=== PATIENT | male | born 1935 | race Caucasian/White ===

== ENCOUNTER 2018-11-06 15:56 | Emergency (ER) | payer OTHER, MEDICARE ==
[2018-11-06 16:06] VITALS: BP 161/68
[2018-11-06] MEDS ORDERED: Sodium Chloride 0.9% 1,000 ML IV ONE ×2 (16:25→21:00)
--- NOTE | 2018-11-06 16:35 | EDM.PDOC ---
ED HPI GENERAL MEDICAL PROBLEM - General Chief Complaint: Fever Stated Complaint: [facility] Time Seen by Provider: 11/06/18 16:17 Source of Information: Reports: Patient, Family History Limitations: Reports: Altered Mental Status - History of Present Illness INITIAL COMMENTS - FREE TEXT/NARRATIVE: 83-year-old male with history of MS and UTI presents to the ED via EMS with concerns of altered mental status and fever. states patient has a history of kidney stone that required lithotripsy and stent placement. Patient had 1 stone remaining that required further treatment. Patient was scheduled for cystoscopy but had to be canceled due to UTI. Patient was discharged from the hospital 10/30/2018. Up until today patient has been doing quite well. He has been taking Cipro as prescribed. There has been no recent trauma associated with his altered mental status. states the patient has been almost falling out of his wheelchair with this confusion thus prompting evaluation. There has been no fall. - Related Data Allergies Allergy/AdvReac Type Severity Reaction Status Date / Time amoxicillin trihydrate AdvReac Indigestion Verified 11/06/18 16:06 [From Augmentin] potassium clavulanate AdvReac Indigestion Verified 11/06/18 16:06 [From Augmentin] Home Meds: Home Meds Baclofen 1 tab PO DAILY 09/11/13 [History] Furosemide [Lasix] 1 tab PO DAILY 09/11/13 [History] Gabapentin [Neurontin] 2 cap PO Q6HR 09/11/13 [History] LORazepam [Ativan] 0.5 mg PO 09,12,16 09/11/13 [History] Potassium Chloride 1 tab PO DAILY 09/11/13 [History] glyBURIDE [Glyburide] 10 tab PO BID 09/11/13 [History] Bisacodyl [Dulcolax] 10 mg RECTAL DAILY PRN 12/07/14 [History] Aspirin [Halfprin] 81 mg PO DAILY 09/25/18 [History] Bisacodyl [Dulcolax] 1 tab RECTAL TUFR 09/25/18 [History] Docusate Sodium [Colace] 100 mg PO DAILY 09/25/18 [History] LORazepam [Ativan] 0.5 mg PO DAILY PRN 09/25/18 [History] Levothyroxine Sodium [Synthroid] 75 mcg PO DAILY 09/25/18 [History] Rosuvastatin Calcium 10 mg PO BEDTIME 09/25/18 [History] Sertraline HCl 50 mg PO DAILY 09/25/18 [History] Vit D3/Folic Acid/B2/B6/B12 [Folgard Tablet] 1,000 units PO DAILY 09/25/18 [ History] carBAMazepine [TEGretol] 100 mg PO BID 09/25/18 [History] Ciprofloxacin [Ciprofloxacin HCl] 500 mg PO BID #14 tab 10/31/18 [Rx] Nystatin 30 gm TP BID #1 cream..g. 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 Genitourinary History: Reports: Retention, Urinary Other Genitourinary History: chronic intermittent cath at home Musculoskeletal History: Reports: Other (See Below) Other Musculoskeletal History: chronic muscle weakness, left side worse weakness than right- uses abram lift at home, able to assist with bed mobility with upper body- Neurological History: Reports: MS, Seizure Other Neuro History: facial twitching which nuerologist believes to be mini seizures Psychiatric History: Reports: Anxiety, Depression Other Psychiatric History: on ativan Endocrine/Metabolic History: Reports: Diabetes, Type II Other Endocrine/Metabolic History: states he is borderline and on po med Other Oncologic History: not assessed with - Infectious Disease History Other Infectious Disease History: denies MRSA and VRE - Past Surgical History Dermatological Surgical History: Reports: Skin Graft Social & Family History - Family History Family Medical History: Noncontributory - Caffeine Use Caffeine Use: Reports: None ED ROS GENERAL - Review of Systems Review Of Systems: Unable To Obtain - Physical Exam Exam: See Below Exam Limited By: Other (Dry mouth difficulty to understand speech. Confused.) General Appearance: Alert, Lethargic Eye Exam: Bilateral Eye: Normal Inspection, PERRL Ears: Hearing Grossly Normal Nose: Normal Inspection Throat/Mouth: No Airway Compromise, Other (Dry oromucosa with slurred speech present.) Head Exam: Atraumatic, Normocephalic Neck: Normal Inspection, Supple, Non-Tender, Full Range of Motion. No: Lymphadenopathy (L), Lymphadenopathy (R) Respiratory/Chest: No Respiratory Distress, Lungs Clear, Normal Breath Sounds, No Accessory Muscle Use, Chest Non-Tender Cardiovascular: Normal Peripheral Pulses, Regular Rate, Rhythm, No Murmur GI/Abdominal: Normal Bowel Sounds, Soft, Non-Tender, No Organomegaly, No Distention Neuro Exam (Abbreviated): Alert, Other (Patient's able to lift his arms in front of him hold him upright while closing his eyes with no pronator drift. No obvious weakness discrepancy is to the upper extremity. He does not follow commands.). No: Normal Cognition (Confused) Back Exam: Normal Inspection Extremities: Normal Inspection, Non-Tender, Pedal Edema (Trace bilaterally) Skin Exam: Warm, Dry, Intact, Normal Color, No Rash Course - Vital Signs Last Recorded V/S: Last Vital Signs Temp 98.9 F 11/06/18 16:00 Pulse 112 H 11/06/18 16:00 Resp 28 H 11/06/18 16:00 BP 161/68 H 11/06/18 16:00 Pulse Ox 91 L 11/06/18 16:00 - Orders/Labs/Meds Orders: Active Orders 24 hr Category Date Time Status Glucose [Blood Glucose Check, Bedside] [RC] ONETIME Care 11/06/18 20:00 Active Chest 1V Frontal [CR] Stat Exams 11/06/18 16:25 Taken CULTURE BLOOD [BC] Stat Lab 11/06/18 17:07 Received CULTURE BLOOD [BC] Stat Lab 11/06/18 17:55 Received CULTURE URINE [RM] Stat Lab 11/06/18 18:40 Received PROCALCITONIN [REF] Stat Lab 11/06/18 17:07 Received STREP PNEUMONIAE ANTIGEN [MREF] Stat Lab 11/06/18 18:40 Received Blood Culture x2 Reflex Set [OM.PC] Stat Oth 11/06/18 16:25 Ordered Labs: Laboratory Tests 11/06/18 11/06/18 11/06/18 Range/Units 17:07 17:07 17:07 WBC 21.23 H (4.23-9.07) K/mm3 RBC 4.67 (4.63-6.08) M/mm3 Hgb 14.0 (13.7-17.5) gm/L Hct 41.8 (40.1-51.0) % MCV 89.5 (79.0-92.2) fl MCH 30.0 (25.7-32.2) pg MCHC 33.5 (32.2-35.5) g/dl RDW Std Deviation 43.0 (35.1-43.9) fL Plt Count 329 (163-337) K/mm3 MPV 11.4 (9.4-12.3) fl Neutrophils % (Manual) 82 H (40-60) % Band Neutrophils % 0 (0-10) % Lymphocytes % (Manual) 14 L (20-40) % Atypical Lymphs % 0 % Monocytes % (Manual) 3 (2-10) % Eosinophils % (Manual) 1 (0.8-7.0) % Basophils % (Manual) 0 L (0.2-1.2) Platelet Estimate Adequate Plt Morphology Comment Normal RBC Morph Comment Normal Puncture Site ABG pH (7.35-7.45) ABG pCO2 (35.0-45.0) mmHg ABG pO2 (80.0-100.0) mmHg ABG HCO3 (22.0-26.0) meq/L ABG O2 Saturation (96.0-97.0) % ABG Base Excess (-2-2.0) Abdelrahman Test O2 Delivery Device FiO2 (21.00-100.00) % Sodium 134 L (136-145) mEq/L Potassium 2.8 L (3.5-5.1) mEq/L Chloride 91 L D (98-107) mEq/L Carbon Dioxide 30 (21-32) mEq/L Anion Gap 15.8 H (5-15) BUN 22 H (7-18) mg/dL Creatinine 1.1 (0.7-1.3) mg/dL Est Cr Clr Drug Dosing TNP Estimated GFR (MDRD) > 60 (>60) mL/min BUN/Creatinine Ratio 20.0 H (14-18) Glucose 542 H (83-115) mg/dL Serum Osmolality (280-300) mosm/kg Lactic Acid 1.6 (0.4-2.0) mmol/L Calcium 9.5 (8.5-10.1) mg/dL Total Bilirubin 0.6 (0.2-1.0) mg/dL AST 20 (15-37) U/L ALT 37 (16-63) U/L Alkaline Phosphatase 116 (46-116) U/L C-Reactive Protein 36.3 H* (<1.0) mg/dL Total Protein 8.6 H (6.4-8.2) g/dl Albumin 3.0 L (3.4-5.0) g/dl Globulin 5.6 gm/dL Albumin/Globulin Ratio 0.5 L (1-2) Urine Color (Yellow) Urine Appearance (Clear) Urine pH (5.0-8.0) Ur Specific [place] (1.005-1.030) Urine Protein (Negative) Urine Glucose (UA) (Negative) Urine Ketones (Negative) Urine Occult Blood (Negative) Urine Nitrite (Negative) Urine Bilirubin (Negative) Urine Urobilinogen (0.2-1.0) Ur Leukocyte Esterase (Negative) Urine RBC (0-5) /hpf Urine WBC (0-5) /hpf Urine WBC Clumps (NOT SEEN) /hpf Ur Epithelial Cells (0-5) /hpf Urine Bacteria (FEW) /hpf Urine Mucus (FEW) /hpf Urine Yeast (NOT SEEN) Ketones (0.0-0.3) mM Mycoplasma pneumon IgM Negative (NEGATIVE) 11/06/18 11/06/18 11/06/18 Range/Units 17:07 17:07 18:40 WBC (4.23-9.07) K/mm3 RBC (4.63-6.08) M/mm3 Hgb (13.7-17.5) gm/L Hct (40.1-51.0) % MCV (79.0-92.2) fl MCH (25.7-32.2) pg MCHC (32.2-35.5) g/dl RDW Std Deviation (35.1-43.9) fL Plt Count (163-337) K/mm3 MPV (9.4-12.3) fl Neutrophils % (Manual) (40-60) % Band Neutrophils % (0-10) % Lymphocytes % (Manual) (20-40) % Atypical Lymphs % % Monocytes % (Manual) (2-10) % Eosinophils % (Manual) (0.8-7.0) % Basophils % (Manual) (0.2-1.2) Platelet Estimate Plt Morphology Comment RBC Morph Comment Puncture Site ABG pH (7.35-7.45) ABG pCO2 (35.0-45.0) mmHg ABG pO2 (80.0-100.0) mmHg ABG HCO3 (22.0-26.0) meq/L ABG O2 Saturation (96.0-97.0) % ABG Base Excess (-2-2.0) Abdelrahman Test O2 Delivery Device FiO2 (21.00-100.00) % Sodium (136-145) mEq/L Potassium (3.5-5.1) mEq/L Chloride (98-107) mEq/L Carbon Dioxide (21-32) mEq/L Anion Gap (5-15) BUN (7-18) mg/dL Creatinine (0.7-1.3) mg/dL Est Cr Clr Drug Dosing Estimated GFR (MDRD) (>60) mL/min BUN/Creatinine Ratio (14-18) Glucose (83-115) mg/dL Serum Osmolality 315 H (280-300) mosm/kg Lactic Acid (0.4-2.0) mmol/L Calcium (8.5-10.1) mg/dL Total Bilirubin (0.2-1.0) mg/dL AST (15-37) U/L ALT (16-63) U/L Alkaline Phosphatase (46-116) U/L C-Reactive Protein (<1.0) mg/dL Total Protein (6.4-8.2) g/dl Albumin (3.4-5.0) g/dl Globulin gm/dL Albumin/Globulin Ratio (1-2) Urine Color Yellow (Yellow) Urine Appearance Cloudy H (Clear) Urine pH 6.5 (5.0-8.0) Ur Specific [place] 1.015 (1.005-1.030) Urine Protein 1+ H (Negative) Urine Glucose (UA) 2+ H (Negative) Urine Ketones Negative (Negative) Urine Occult Blood 2+ H (Negative) Urine Nitrite Negative (Negative) Urine Bilirubin Negative (Negative) Urine Urobilinogen 0.2 (0.2-1.0) Ur Leukocyte Esterase 1+ H (Negative) Urine RBC 10-20 H (0-5) /hpf Urine WBC 75-100 H (0-5) /hpf Urine WBC Clumps Few (NOT SEEN) /hpf Ur Epithelial Cells 0-5 (0-5) /hpf Urine Bacteria Moderate H (FEW) /hpf Urine Mucus Not seen (FEW) /hpf Urine Yeast Moderate H (NOT SEEN) Ketones 0.58 (0.0-0.3) mM Mycoplasma pneumon IgM (NEGATIVE) 11/06/18 Range/Units 20:20 WBC (4.23-9.07) K/mm3 RBC (4.63-6.08) M/mm3 Hgb (13.7-17.5) gm/L Hct (40.1-51.0) % MCV (79.0-92.2) fl MCH (25.7-32.2) pg MCHC (32.2-35.5) g/dl RDW Std Deviation (35.1-43.9) fL Plt Count (163-337) K/mm3 MPV (9.4-12.3) fl Neutrophils % (Manual) (40-60) % Band Neutrophils % (0-10) % Lymphocytes % (Manual) (20-40) % Atypical Lymphs % % Monocytes % (Manual) (2-10) % Eosinophils % (Manual) (0.8-7.0) % Basophils % (Manual) (0.2-1.2) Platelet Estimate Plt Morphology Comment RBC Morph Comment Puncture Site Lt radial ABG pH 7.44 (7.35-7.45) ABG pCO2 40.9 (35.0-45.0) mmHg ABG pO2 55.0 L (80.0-100.0) mmHg ABG HCO3 27.5 H (22.0-26.0) meq/L ABG O2 Saturation 88.4 L (96.0-97.0) % ABG Base Excess 3.6 H (-2-2.0) Abdelrahman Test Positive O2 Delivery Device Room air FiO2 0.00 L (21.00-100.00) % Sodium (136-145) mEq/L Potassium (3.5-5.1) mEq/L Chloride (98-107) mEq/L Carbon Dioxide (21-32) mEq/L Anion Gap (5-15) BUN (7-18) mg/dL Creatinine (0.7-1.3) mg/dL Est Cr Clr Drug Dosing Estimated GFR (MDRD) (>60) mL/min BUN/Creatinine Ratio (14-18) Glucose (83-115) mg/dL Serum Osmolality (280-300) mosm/kg Lactic Acid (0.4-2.0) mmol/L Calcium (8.5-10.1) mg/dL Total Bilirubin (0.2-1.0) mg/dL AST (15-37) U/L ALT (16-63) U/L Alkaline Phosphatase (46-116) U/L C-Reactive Protein (<1.0) mg/dL Total Protein (6.4-8.2) g/dl Albumin (3.4-5.0) g/dl Globulin gm/dL Albumin/Globulin Ratio (1-2) Urine Color (Yellow) Urine Appearance (Clear) Urine pH (5.0-8.0) Ur Specific [place] (1.005-1.030) Urine Protein (Negative) Urine Glucose (UA) (Negative) Urine Ketones (Negative) Urine Occult Blood (Negative) Urine Nitrite (Negative) Urine Bilirubin (Negative) Urine Urobilinogen (0.2-1.0) Ur Leukocyte Esterase (Negative) Urine RBC (0-5) /hpf Urine WBC (0-5) /hpf Urine WBC Clumps (NOT SEEN) /hpf Ur Epithelial Cells (0-5) /hpf Urine Bacteria (FEW) /hpf Urine Mucus (FEW) /hpf Urine Yeast (NOT SEEN) Ketones (0.0-0.3) mM Mycoplasma pneumon IgM (NEGATIVE) Meds: Medications Discontinued Medications Generic Name Dose Route Start Last Admin Trade Name Freq PRN Reason Stop Dose Admin Sodium Chloride 1,000 mls @ 999 mls/hr 11/06/18 16:25 11/06/18 17:06 Normal Saline IV 11/06/18 17:25 999 mls/hr ONETIME ONE Administration Levofloxacin/Dextrose 750 mg/ 150 mls @ 100 mls/hr 11/06/18 18:08 11/06/18 18 :28 Premix IV 11/06/18 19:37 100 mls/hr ONETIME ONE Administration Potassium Chloride 10 meq/ 100 mls @ 100 mls/hr 11/06/18 18:35 11/06/18 19:57 Premix IV 11/06/18 19:34 100 mls/hr ASDIRECTED ONE Administration Potassium Chloride 10 meq/ 100 mls @ 100 mls/hr 11/06/18 18:34 11/06/18 20:53 Premix IV 08/22/19 19:33 100 mls/hr ASDIRECTED ONE Administration Potassium Chloride 10 meq/ 100 mls @ 100 mls/hr 11/06/18 18:34 Premix IV 11/06/18 19:33 ONETIME ONE Sodium Chloride 1,000 mls @ 250 mls/hr 11/06/18 18:35 11/06/18 21:01 Normal Saline IV 11/06/18 22:34 999 mls/hr ONETIME ONE Administration Sodium Chloride Confirm 11/06/18 20:57 11/06/18 21:03 Normal Saline Administered 11/06/18 20:58 Not Given Dose 1,000 mls @ as directed .ROUTE .STK-MED ONE Sodium Chloride 1,000 mls @ 999 mls/hr 11/06/18 21:00 11/06/18 21:03 Normal Saline IV 11/06/18 22:00 999 mls/hr ONETIME ONE Administration Potassium Chloride 40 meq 11/06/18 18:41 11/06/18 19:18 Potassium Chloride Solution PO 11/06/18 18:42 40 meq ONETIME ONE Administration - Re-Assessments/Exams Free Text/Narrative Re-Assessment/Exam: On exam patient's vital signs are 161/68, heart rate 110, temperature 98.9F, RR 28 with O2 sats 91% on room air. Patient is slightly confused with a dry mouth. He offers no complaints at this time. who is present states the patient has a history of MS with recent urinary tract infection and kidney stones that required lithotripsy and stent placement. Patient had 2 kidney stones with one remaining. Patient was just recently discharged from the hospital this past . He was admitted to [facility] and underwent lithotripsy and stent placement able to break the 1 kidney stone that was blocking the ureter. Patient has one other stone remaining in the kidney of unknown side that requires further treatment. Patient has been taking the Cipro as prescribed for unresolved UTI. As of this morning developed some confusion with subjective fever. Patient has been slightly short of breath per with no cough present. Patient has been weak and almost falling out of his chair. Patient has not fallen out of the chair or suffered any form of trauma. EMS was notified and transported the patient to the ED with a temperature of 102F. Upon admission to the ED patient has no fever. IV will be established with normal saline 1 L IV bolus. Initial labs and studies will include: CBC, chem 14, CRP, blood culture 2, but the gas a, UA via quick in and out catheter, and also will obtain mycoplasma, calcitonin, and strep pneumonia with recent hospitalization. 11/06/18 17:24 CXR revealed no acute findings. Reviewed with Dr. Guzman. Final interpretation is pending. CT of the head impression: Sinus findings which are fairly stable from previous exam. As mentioned previously, please correlate the patient has no symptoms of sinusitis. Senescent change as noted above which is fairly stable from prior head CT exam. No acute intracranial abnormality is appreciated. Labs reviewed: White blood cell count 21.23, hemoglobin 14.0, platelet count 329 , differential is pending. Sodium 134, potassium 2.8, chloride 91, CO2 30, AG 15.8, BUN 22, crit 1.1, glucose 542, CRP pending. Discussed patient with Dr. Guzman suggested IV levaquin since patient had a adverse reaction with taking keflex last E.D. visit. Per MD calc patient is in non anion gap acidosis. CRP Pending and differential pending. Mycoplasma is pending. Reassessment, patient states he is feeling much better. Speech is almost back to baseline per . Patients HR trending down with BP maintaining. Ordered potassium 10 mEq IV x 3. Additional 1 liter of NS 250mls/hr ordered. I do not want to fluid overload the patient. I have ordered liquid potassium 40 mEq by mouth. Per patient has been able to swallow with no issues. CRP 36.3, serum osmolality 315, and lactic acid 1.6. UA positive for protein, glucose, occult blood, leukocyte esterase, rbc's 10-20 , WBC 75-100, bacteria moderate, and yeast moderate. Ketones 0.58 which is elevated. Mycoplasma negative. CRP 36.3, serum osmolality 315, and lactic acid 1.6. UA positive for protein, glucose, occult blood, leukocyte esterase, rbc's 10-20 , WBC 75-100, bacteria moderate, and yeast moderate. Ketones 0.58 which is elevated. Mycoplasma negative. 2012 POC BS >400. IVF's changed to 999mls/hr. although patient does have a history of type 2 diabetes he is in DKA with elevated ketones and serum osmolality. Cannot start patient on any insulin at this point with hypokalemia. This has to be corrected prior. Patient meets sepsis criteria. Per patient weighs 83kgs. [address]Bhandari Srinivasan Manrique. He has agreed to accept the patient. Transfer paperwork has been completed. EMS has been notified. Requested abg. This has been ordered. 11/06/18 21:01 ABG pH 7.44, PCO2 40.9, PO2 55, HCO3 27.5, O2 sats 88.4, ABG base excess 3.6. Per MD Calc: Primary Metabolic Alkalosis with appropriately compensated by Respiratory Acidosis. Unable to determine cause of low PO2. He is tachycardic with mildly low O2 sats of 91%. Discussed ABG with . Suspects cause of low O2 secondary to his inability to take adequate inspiration due to MS. He may have a PE but unlikely. Results to be faxed to Srinivasan Manrique. Departure - Departure Time of Disposition: 20:25 Disposition: DC/Tfer to [facility] 02 Condition: Fair Clinical Impression: Complicated UTI (urinary tract infection), DKA, type 2, not at goal, Hypokalemia Sepsis Qualifiers: Sepsis type: sepsis due to unspecified organism Sepsis acute organ dysfunction status: without acute organ dysfunction Qualified Code(s): A41.9 - Sepsis, unspecified organism - Discharge Information Referrals: PCP,Unknown [Ordering Only Provider] - Forms: ED Department Discharge - My Orders Last 24 Hours: My Active Orders 11/06/18 16:25 Chest 1V Frontal [CR] Stat Blood Culture x2 Reflex Set [OM.PC] Stat 11/06/18 17:07 CULTURE BLOOD [BC] Stat PROCALCITONIN [REF] Stat 11/06/18 17:55 CULTURE BLOOD [BC] Stat 11/06/18 18:40 CULTURE URINE [RM] Stat STREP PNEUMONIAE ANTIGEN [MREF] Stat 11/06/18 20:00 Glucose [Blood Glucose Check, Bedside] [RC] ONETIME - Assessment/Plan Last 24 Hours: My Active Orders 11/06/18 16:25 Chest 1V Frontal [CR] Stat Blood Culture x2 Reflex Set [OM.PC] Stat 11/06/18 17:07 CULTURE BLOOD [BC] Stat PROCALCITONIN [REF] Stat 11/06/18 17:55 CULTURE BLOOD [BC] Stat 11/06/18 18:40 CULTURE URINE [RM] Stat STREP PNEUMONIAE ANTIGEN [MREF] Stat 11/06/18 20:00 Glucose [Blood Glucose Check, Bedside] [RC] ONETIME
--- NOTE | 2018-11-06 17:19 | CT ---
Head CT Technique: Multiple axial sections through the brain were obtained. Intravenous contrast was not utilized. Comparison: Prior head CT study of 10/31/18. Findings: Ventricles along with basal cisterns and sulci over the convexities are moderately prominent. Mild areas of diminished density is noted within portions of the periventricular white matter compatible with small vessel ischemic demyelination change. No other abnormal parenchymal densities are seen. No evidence of intracranial hemorrhage. No midline shift or mass effect is seen. Bone window settings were reviewed which shows mucosal thickening within the right maxillary sinus as well as within the ethmoid sinuses. No acute calvarial abnormality is appreciated. Impression: 1. Sinus findings which are fairly stable from previous exam. As mentioned previously, please correlate that patient has no symptoms of sinusitis. 2. Senescent change as noted above which is fairly stable from prior head CT exam. 3. No acute intracranial abnormality is appreciated. Diagnostic code #2
[2018-11-06] MEDS ORDERED: Levofloxacin/Dextrose 5%-Water 750 MG in Premix Bag 1 BAG IV ONE (18:08)
[2018-11-06] MEDS ORDERED: Potassium Chloride 10 MEQ in Premix Bag 1 BAG IV ONE ×5 (18:34→18:35)
[2018-11-06] MEDS ORDERED: Potassium Chloride 10% 20 MEQ/15 ML Soln 15 ML UD Cup PO ONE (18:41)
[2018-11-06] MEDS: Sodium Chloride 0.9% 1,000 ML IV ONE ×2 (19:17→21:01)
[2018-11-06] MEDS ORDERED: Sodium Chloride 0.9% 1,000 ML ONE (20:57)
--- NOTE | 2018-11-07 08:16 | CR ---
Chest: Portable view of the chest was obtained. Comparison: Prior chest x-ray of 09/25/18. Heart size is normal. Tortuous thoracic aorta is seen. Lungs are clear. Bony structures are grossly intact. Impression: 1. Nothing acute is seen on portable chest x-ray. Diagnostic code #1
== END 2018-11-06 21:10 ==
LOC: JD.ED 15:56
DX: A41.9 Sepsis, unspecified organism (principal); N39.0 Urinary tract infection, site not specified; E11.10 Type 2 diabetes mellitus with ketoacidosis without coma; E87.6 Hypokalemia; I10 Essential (primary) hypertension; G35 Multiple sclerosis; F41.9 Anxiety disorder, unspecified; F32.9 Major depressive disorder, single episode, unspecified; Z88.1 Allergy status to other antibiotic agents; Z79.899 Other long term (current) drug therapy; Z79.82 Long term (current) use of aspirin; Z79.84 Long term (current) use of oral hypoglycemic drugs
CPT/HCPCS: 36415; 36600; 70450; 71045; 80053; 81001; 82009; 82803; 83605; 83930; 84145; 85007; 85027; 86140; 86738; 87040; 87086; 87088; 87899; 96361; 96365; 96367; 96376; 99285; A9270; J1956; J3480; J7040